=== PATIENT | female | born 2000 | race Caucasian/White ===

== ENCOUNTER 2018-08-19 11:56 | Emergency (ER) | payer BC ==
[2018-08-19] MEDS ORDERED: MEPERIDINE HCL 25 MG/0.5 ML ONE (12:26)
[2018-08-19] MEDS ORDERED: TAMSULOSIN 0.4 MG SR CAP ONE (12:27)
[2018-08-19] MEDS ORDERED: ONDANSETRON 4 MG/2 ML VIAL ONE (12:27)
[2018-08-19 12:58] LABS: Absolute Monocytes 0.7 K/uL (0.1-1.3); Absolute Neutrophil 5.3 K/uL (1.8-8.0); Basophils % 0.7 % (0-1.3); Eosinophils % 1.7 % (0-4.4); Hematocrit 39.9 % (36.0-45.0); Lymphocytes % 32.7 % (15.3-44.8); MPV 8.8 fL (7.6-11.3); Monocytes % 7.9 % (3.3-12.3); RBC Red Blood Cell Count 4.81 M/uL (3.86-4.86)
--- NOTE | 2018-08-19 13:01 | RAD REPORT ---
EXAM DESCRIPTION: CT - Stone Protocol - 08/19/2018 12:51 pm CLINICAL HISTORY: Right flank pain radiating to the right lower quadrant COMPARISON: None. TECHNIQUE: Axial 5 mm thick images were obtained without oral or IV contrast. The [id number] span s the entirety of the system partially obscuring uppermost abdomen and lung bases. All CT scans are performed using dose optimization technique as appropriate and may include automated exposure control or mA/KV adjustment according to patient size. FINDINGS: Mild right-sided hydronephrosis is present secondary to a 3 mm calcification in the distal right ureter. Stone is approximately 6-8 cm from the UVJ. No left-sided hydronephrosis. Patient has bilateral nonobstructing 2-5 mm calyx calculi. No suspiciou s renal masses. Isodense masses and pyelonephritis are not excluded on a stone protocol CT scan. Urin jemima bladder is contracted. No bladder calculi seen. No significant adrenal finding. Next 9 no uterus or right ovary abnormality. Left ovary contains a 3.2 centimeter probable cyst. No cyst rupture or he morrhage identified. Imaged portions of the liver, spleen and pancreas show no suspicious findings on non-contrast imaging . No gallbladder or biliary tree abnormality identified. No suspicious bowel findings. Appendix is normal. No hernia, mass or bulky lymphadenopathy noted. No free air, free fluid or inflammatory stranding. No acute bone finding. IMPRESSION: Mild right-sided hydronephrosis secondary to 3 mm distal right ureter calculus. Stone is approximately 6-8 cm from the UVJ. Bilateral nonobstructing calculi. Isodense masses and pyelonephritis are not excluded on stone protocol technique. Approximately 3 centimeter left ovarian cyst.
[2018-08-19 13:14] LABS: Urine Bacteria <20 /HPF (<20); Urine Culture Reflex Order NOT NEEDED; Urine RBC 20-50 /HPF (NONE SEEN)
[2018-08-19 13:16] LABS: ALT/SGPT 27 U/L (12-78); AST/SGOT 19 U/L (15-37); Albumin 3.5 g/dL (3.4-5.0); Alkaline Phosphatase 99 U/L (45-117); BUN Blood Urea Nitrogen 14 mg/dL (7-18); Bicarbonate 23 mmol/L (21-32); Bilirubin Direct < 0.1 mg/dL (0-0.2); Bilirubin Total 0.3 mg/dL (0.2-1.0); Glucose Level 98 mg/dL (74-106); Lipase 85 U/L (73-393); Potassium 3.6 mmol/L (3.5-5.1); Protein, Total 7.5 g/dL (6.4-8.2); Sodium Level 139 mmol/L (136-145)
[2018-08-19] MEDS ORDERED: PROMETHAZINE 25 MG/ML VIAL ONE (13:24)
[2018-08-19] MEDS ORDERED: MORPHINE 4 MG/ML SYR ONE (13:30)
--- OUTSIDE RECORDS SUMMARY | 2018-08-19 13:34 | XMS REPORT ---
:2000 [facility] Address [address] [place] [address] Dr. Ireland. [address] [place] [id number] Care Team Providers Name Role Phone Unavailable Unavailable Unavailable Problems This patient has no known problems. Allergies, Adverse Reactions, Alerts This patient has no known allergies or adverse reactions. Medications This patient has no known medications.
[2018-08-19 13:57] LABS: Urine Blood 2+ (NEG); Urine Glucose NEGATIVE (NEG); Urine Protein 1+ (NEG); Urine Specific Gravity >1.030 (1.005-1.030); Urine pH 5.5 (5.0-7.0)
--- NOTE | 2018-08-19 15:25 | ER ---
Nurse's Notes [facility] Name: Rachel Toledo Age: 17 yrs Sex: Female : 2000 Arrival Date: 08/19/2018 Time: 11:57 Bed 23 Private MD: Benedict Hernandez B Diagnosis: Ureterolithiasis Presentation: 08/19 11:59 Presenting complaint: Patient states: R flank pain with nausea that began this morning. ss Radiates to RLQ. Transition of care: patient was not received from another setting of care. Onset of symptoms was August 19, 2018. Risk Assessment: Do you want to hurt yourself or someone else? Patient reports no desire to harm self or others. Initial Sepsis Screen: Does the patient meet any 2 criteria? No. Patient's initial sepsis screen is negative. Does the patient have a suspected source of infection? No. Patient's initial sepsis screen is negative. Care prior to arrival: None. 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 - Social history:: Smoking status: Patient/guardian denies using tobacco. - Ebola Screening: : Patient denies exposure to infectious person Patient denies travel to an Ebola-affected area in the 21 days before illness onset. - Family history:: not pertinent. - Hospitalizations: : No recent hospitalization is reported. Screenin:18 Abuse screen: Denies threats or abuse. Denies injuries from another. Nutritional aj1 screening: No deficits noted. Tuberculosis screening: No symptoms or risk factors identified. 15:41 Fall Risk None identified. aj1 Assessment: 12:18 General: Appears comfortable, Behavior is cooperative, anxious, restless. Pain: aj1 Complains of pain in right low back Pain radiates to anterior aspect of right lateral abdomen Pain currently is 10 out of 10 on a pain scale. Neuro: Level of Consciousness is awake, alert, obeys commands, Oriented to person, place, time, situation. Cardiovascular: Patient's skin is warm and dry. Respiratory: Airway is patent Respiratory effort is even, unlabored, Respiratory pattern is regular, symmetrical. GI: Abdomen is non-distended, Bowel sounds present X 4 quads. Abd is soft and non tender X 4 quads. Reports nausea. : Reports flank pain. EENT: No signs and/or symptoms were reported regarding the EENT system. Derm: No signs and/or symptoms reported regarding the dermatologic system. Skin is pink, warm \T\ dry. normal. Musculoskeletal: No signs and/or symptoms reported regarding the musculoskeletal system. Circulation, motion, and sensation intact. 13:35 Reassessment: Patient appears in no apparent distress at this time. No changes from aj1 previously documented assessment. Patient and/or family updated on plan of care and expected duration. Pain level reassessed. Patient is alert, oriented x 3, equal unlabored respirations, skin warm/dry/pink. 14:38 Reassessment: Patient appears in no apparent distress at this time. No changes from aj1 previously documented assessment. Patient and/or family updated on plan of care and expected duration. Pain level reassessed. Patient is alert, oriented x 3, equal unlabored respirations, skin warm/dry/pink. 15:41 Reassessment: Patient appears in no apparent distress at this time. No changes from aj1 previously documented assessment. Patient and/or family updated on plan of care and expected duration. Pain level reassessed. Patient is alert, oriented x 3, equal unlabored respirations, skin warm/dry/pink. Vital Signs: 12:00 Resp 18; Weight 117.93 kg; Height 5 ft. 3 in. (160.02 cm); Pain 10/10; ss 12:30 BP 120 / 63; Pulse 64; Resp 18; Pulse Ox 100% on R/A; aj1 13:38 BP 117 / 73; Pulse 79; Resp 18; Pulse Ox 99% on R/A; aj1 14:38 BP 128 / 76; Pulse 78; Resp 18; Pulse Ox 98% on R/A; aj1 15:42 BP 125 / 66; Pulse 72; Resp 18; Pulse Ox 99% on R/A; aj1 12:00 Body Mass Index 46.06 (117.93 kg, 160.02 cm) ED Course: 11:57 Patient arrived in ED. dl4 11:58 Benedict Hernandez MD is Private Physician. dl4 12:00 Triage completed. ss 12:00 Arm band placed on right wrist. ss 12:03 Chinmay San MD is Attending Physician. rn 12:13 Leonor Rossi RN is Primary Nurse. aj1 12:16 Radiology exam delayed due to test not completed at this time. jg6 12:18 Patient has correct armband on for positive identification. Bed in low position. Call aj1 light in reach. Side rails up X 1. 12:18 No provider procedures requiring assistance completed. aj1 12:47 Missed attempt(s): 22 gauge in left in right forearm. antecubital area. Bleeding ds4 controlled, band aid applied, catheter tip intact. 12:50 Inserted saline lock: 24 gauge in right hand, using aseptic technique. Blood collected. aj1 12:51 CT Stone Protocol In Process Unspecified. EDMS 15:23 Kitty Zimmerman MD is Referral Physician. rn 15:41 IV discontinued, intact, bleeding controlled, No redness/swelling at site. Pressure aj1 dressing applied. Administered Medications: 12:49 Drug: Demerol 25 mg Route: IVP; Site: right hand; aj1 13:20 Follow up: Response: No adverse reaction; Pain is unchanged, physician notified aj1 12:49 Drug: Zofran 4 mg Route: IVP; Site: right hand; aj1 13:20 Follow up: Response: No adverse reaction aj1 12:49 Drug: Flomax 0.4 mg Route: PO; aj1 13:20 Follow up: Response: No adverse reaction aj1 13:24 Drug: Phenergan 12.5 mg Route: IVP; Site: right hand; aj1 14:20 Follow up: Response: No adverse reaction aj1 13:25 Drug: morphine 4 mg Route: IVP; Site: right hand; aj1 14:20 Follow up: Response: No adverse reaction; Pain is decreased aj1 Outcome: 15:24 Discharge ordered by MD. rn 15:43 Discharged to home ambulatory, with family. aj1 15:43 Condition: good 15:43 Discharge instructions given to patient, family, Instructed on discharge instructions, follow up and referral plans. no drinking with medication, no driving heavy equipment, medication usage, Demonstrated understanding of instructions, follow-up care, medications, Prescriptions given X 4. 15:43 Patient left the ED. aj1 Signatures: Dispatcher [employer] Leonor Shin RN RN aj1 Chinmay San MD MD rn Smirch, Shelby, RN RN ss Swanson, Donovan ds4 Maria Eugenia Booth6 Aleksandr Puckett dl4
--- NOTE | 2018-08-19 15:25 | EDPHYS ---
Physician Documentation [facility] Name: Rachel Toledo Age: 17 yrs Sex: Female : 2000 Arrival Date: 08/19/2018 Time: 11:57 Bed 23 Private MD: Benedict Hernandez B ED Physician Chinmay San HPI: 08/19 12:42 This 17 yrs old Female presents to ER via Ambulatory with complaints of flank rn pain, Vomiting. 12:42 The patient complains of pain in the low back area. The pain radiates to the abdomen. rn Onset: The symptoms/episode began/occurred today. Modifying factors: The symptoms are alleviated by nothing. the symptoms are aggravated by nothing. Severity of pain: At its worst the pain was moderate in the emergency department the pain is unchanged. The patient has not experienced similar symptoms in the past. The patient has not recently seen a physician. 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 - Social history:: Smoking status: Patient/guardian denies using tobacco. - Ebola Screening: : Patient denies exposure to infectious person Patient denies travel to an Ebola-affected area in the 21 days before illness onset. - Family history:: not pertinent. - Hospitalizations: : No recent hospitalization is reported. ROS: 12:42 Constitutional: Negative for fever, chills, and weight loss, Eyes: Negative for injury, rn pain, redness, and discharge, Neck: Negative for injury, pain, and swelling, Cardiovascular: Negative for chest pain, palpitations, and edema, Respiratory: Negative for shortness of breath, cough, wheezing, and pleuritic chest pain, Abdomen/GI: + nausea/vomiting Back: + right flank pain MS/Extremity: Negative for injury and deformity, Skin: Negative for injury, rash, and discoloration, Neuro: Negative for headache, weakness, numbness, tingling, and seizure. Exam: 12:42 Constitutional: This is a well developed, well nourished patient who is awake, alert, rn appears uncomfortable Head/Face: Normocephalic, atraumatic. Eyes: Pupils equal round and reactive to light, extra-ocular motions intact. Lids and lashes normal. Conjunctiva and sclera are non-icteric and not injected. Cornea within normal limits. Periorbital areas with no swelling, redness, or edema. ENT: MMM Abdomen/GI: soft, non-tender, no rebound Back: No spinal tenderness. No costovertebral tenderness. Full range of motion. MS/ Extremity: Pulses equal, no cyanosis. Neurovascular intact. Full, normal range of motion. Equal circumference. Neuro: Awake and alert, GCS 15, oriented to person, place, time, and situation. Cranial nerves II-XII grossly intact. Motor strength 5/5 in all extremities. Sensory grossly intact. Cerebellar exam normal. Normal gait. Vital Signs: 12:00 Resp 18; Weight 117.93 kg; Height 5 ft. 3 in. (160.02 cm); Pain 10/10; ss 12:30 BP 120 / 63; Pulse 64; Resp 18; Pulse Ox 100% on R/A; aj1 13:38 BP 117 / 73; Pulse 79; Resp 18; Pulse Ox 99% on R/A; aj1 14:38 BP 128 / 76; Pulse 78; Resp 18; Pulse Ox 98% on R/A; aj1 15:42 BP 125 / 66; Pulse 72; Resp 18; Pulse Ox 99% on R/A; aj1 12:00 Body Mass Index 46.06 (117.93 kg, 160.02 cm) ss MDM: 12:03 Patient medically screened. rn 15:21 Differential diagnosis: nephrolithiasis, UTI. 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 Counseling: I had a detailed discussion with the patient and/or guardian regarding: the historical points, exam findings, and any diagnostic results supporting the discharge/admit diagnosis, lab results, radiology results, the need for outpatient follow up, to return to the emergency department if symptoms worsen or persist or if there are any questions or concerns that arise at home. Response to treatment: the patient's symptoms have markedly improved after treatment, the patient's condition has returned to base line, and as a result, I will discharge patient. Special discussion: I discussed with the patient/guardian in detail that at this point there is no indication for admission to the hospital. It is understood, however, that if the symptoms persist or worsen the patient needs to return immediately for re-evaluation. Based on the history and exam findings, there is no indication for further emergent testing or inpatient evaluation. I discussed with the patient/guardian the need to see the primary care provider for further evaluation of the symptoms. I discussed with the patient/guardian the need to see the urologist for further evaluation of the symptoms. ED course: Sleeping comfortably, has likely passed stones in past given stories of intermittent groin pain and spasms. . 08/19 12:09 Order name: Basic Metabolic Panel; Complete Time: 15:05 rn 08/19 12:09 Order name: CBC with Diff; Complete Time: 13:07 rn 08/19 12:09 Order name: Hepatic Function; Complete Time: 15:05 rn 08/19 12:09 Order name: Lipase; Complete Time: 15:05 rn 08/19 12:09 Order name: Urine Microscopic Only; Complete Time: 15:05 rn 08/19 12:17 Order name: Urine Dipstick--Ancillary (enter results); Complete Time: 15:05 bd 08/19 12:09 Order name: IV Saline Lock; Complete Time: 12:49 rn 08/19 12:12 Order name: CT Stone Protocol; Complete Time: 13:07 rn 08/19 12:17 Order name: Urine --Ancillary (enter results); Complete Time: 15:05 bd 08/19 12:09 Order name: Labs collected and sent; Complete Time: 12:49 rn 08/19 12:09 Order name: Urine Test (obtain specimen); Complete Time: 12:17 rn 08/19 12:09 Order name: Urine Dipstick-Ancillary (obtain specimen); Complete Time: 12:17 rn Administered Medications: 12:49 Drug: Demerol 25 mg Route: IVP; Site: right hand; aj1 13:20 Follow up: Response: No adverse reaction; Pain is unchanged, physician notified aj1 12:49 Drug: Zofran 4 mg Route: IVP; Site: right hand; aj1 13:20 Follow up: Response: No adverse reaction aj1 12:49 Drug: Flomax 0.4 mg Route: PO; aj1 13:20 Follow up: Response: No adverse reaction aj1 13:24 Drug: Phenergan 12.5 mg Route: IVP; Site: right hand; aj1 14:20 Follow up: Response: No adverse reaction aj1 13:25 Drug: morphine 4 mg Route: IVP; Site: right hand; aj1 14:20 Follow up: Response: No adverse reaction; Pain is decreased aj Disposition: 08/19/18 15:24 Discharged to Home. Impression: Ureterolithiasis. - Condition is Stable. - Discharge Instructions: Kidney Stones, Dietary Guidelines to Help Prevent Kidney Stones. - Prescriptions for Zofran ODT 4 mg Oral tablet,disintegrating - place 1 tablet by TRANSLINGUAL route every 8 hours As needed; 20 tablet. Ibuprofen 800 mg Oral Tablet - take 1 tablet by ORAL route every 12 hours As needed take with food; 20 tablet. Tylenol- Codeine #3 300-30 mg Oral Tablet - take 1 tablet by ORAL route every 6 hours As needed; 20 tablet. Flomax 0.4 mg Oral Capsule, Sust. Release 24 hr - take 1 capsule by ORAL route once daily 1/2 hour following the same meal each day; 3 capsule. - Medication Reconciliation Form, Thank You Letter, Antibiotic Education, Prescription Opioid Use form. - Follow up: Kitty Zimmerman MD; When: As needed; Reason: Recheck today's complaints, Re-evaluation by your physician. - Problem is new. - Symptoms have improved. Signatures: Dispatcher [employer] Leonor Shin RN RN aj1 Chinmay San MD MD rn Smirch, Shelby, RN RN Corrections: (The following items were deleted from the chart) 15:43 15:24 08/19/2018 15:24 Discharged to Home. Impression: Ureterolithiasis. Condition is aj1 Stable. Forms are Medication Reconciliation Form, Thank You Letter, Antibiotic Education, Prescription Opioid Use. Follow up: Kitty Zimmerman; When: As needed; Reason: Recheck today's complaints, Re-evaluation by your physician. Problem is new. Symptoms have improved. rn
[2018-08-19 16:00] VITALS: BP 125/66; O2SAT 99
== END 2018-08-19 15:43 | disposition home or self-care (01) ==
LOC: ER 11:56
DX: N20.1 Calculus of ureter (principal)
CPT/HCPCS: 36415; 74176; 76377; 80048; 80076; 81003; 81015; 81025; 83690; 85025; 96374; 96375; 99284; J2175; J2405; J2550

== ENCOUNTER 2018-08-21 02:05 | Inpatient (IN) | payer BC ==
--- OUTSIDE RECORDS SUMMARY | 2018-08-21 02:06 | XMS REPORT ---
:2000 [facility] Address [address] [place] [address] Dr. Ireland. [address] [place] [id number] Care Team Providers Name Role Phone Unavailable Unavailable Unavailable Problems This patient has no known problems. Allergies, Adverse Reactions, Alerts This patient has no known allergies or adverse reactions. Medications This patient has no known medications.
[2018-08-21] MEDS ORDERED: NA CHLORIDE 0.9% 2,000 ML ONE (03:05)
[2018-08-21] MEDS ORDERED: KETOROLAC 30 MG/ML INJ ONE (03:05)
[2018-08-21] MEDS ORDERED: MORPHINE 4 MG/ML SYR ONE ×2 (03:05→05:45)
[2018-08-21] MEDS ORDERED: ONDANSETRON 4 MG/2 ML VIAL ONE ×4 (03:07→15:56)
[2018-08-21 03:58] LABS: ALT/SGPT 27 U/L (12-78); AST/SGOT 17 U/L (15-37); Albumin 3.4 g/dL (3.4-5.0); Alkaline Phosphatase 102 U/L (45-117); BUN Blood Urea Nitrogen 22 mg/dL (7-18); Bicarbonate 23 mmol/L (21-32); Bilirubin Direct < 0.1 mg/dL (0-0.2); Bilirubin Total 0.4 mg/dL (0.2-1.0); Glucose Level 90 mg/dL (74-106); Lipase 93 U/L (73-393); Potassium 4.2 mmol/L (3.5-5.1); Protein, Total 7.6 g/dL (6.4-8.2); Sodium Level 137 mmol/L (136-145)
--- NOTE | 2018-08-21 04:19 | EDPHYS ---
Physician Documentation [facility] Name: Rachel Toledo Age: 17 yrs Sex: Female : 2000 Arrival Date: 08/21/2018 Time: 02:06 Bed 6 Private MD: Benedict Hernandez B ED Physician Dima Scott HPI: 08/21 02:43 This 17 yrs old Female presents to ER via Ambulatory with complaints of Flank atul Pain, Vomiting. 02:43 The patient complains of pain in the right mid back and right low back. The pain atul radiates to the right mid back and right low back. Onset: The symptoms/episode began/occurred yesterday. Modifying factors: The symptoms are alleviated by nothing. the symptoms are aggravated by nothing. Associated signs and symptoms: The patient has no apparent associated signs or symptoms. Severity of pain: At its worst the pain was moderate in the emergency department the pain is unchanged. The patient has experienced a previous episode, last night. 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 - Social history:: Smoking status: Patient/guardian denies using tobacco. - Ebola Screening: : No symptoms or risks identified at this time. - Family history:: not pertinent. ROS: 02:43 Constitutional: Negative for fever, chills, and weight loss, Eyes: Negative for injury, atul pain, redness, and discharge, ENT: Negative for injury, pain, and discharge, Neck: Negative for injury, pain, and swelling, Cardiovascular: Negative for chest pain, palpitations, and edema, Respiratory: Negative for shortness of breath, cough, wheezing, and pleuritic chest pain, Abdomen/GI: Negative for abdominal pain, nausea, vomiting, diarrhea, and constipation, : Negative for injury, bleeding, discharge, and swelling, MS/Extremity: Negative for injury and deformity, Skin: Negative for injury, rash, and discoloration, Neuro: Negative for headache, weakness, numbness, tingling, and seizure, Psych: Negative for depression, anxiety, suicide ideation, homicidal ideation, and hallucinations, Allergy/Immunology: Negative for hives, rash, and allergies, Endocrine: Negative for neck swelling, polydipsia, polyuria, polyphagia, and marked weight changes, Hematologic/Lymphatic: Negative for swollen nodes, abnormal bleeding, and unusual bruising. 02:43 Back: Positive for flank pain, on the right. Exam: 02:43 Constitutional: This is a well developed, well nourished patient who is awake, alert, atul and in no acute distress. Head/Face: Normocephalic, atraumatic. Eyes: Pupils equal round and reactive to light, extra-ocular motions intact. Lids and lashes normal. Conjunctiva and sclera are non-icteric and not injected. Cornea within normal limits. Periorbital areas with no swelling, redness, or edema. ENT: Nares patent. No nasal discharge, no septal abnormalities noted. Tympanic membranes are normal and external auditory canals are clear. Oropharynx with no redness, swelling, or masses, exudates, or evidence of obstruction, uvula midline. Mucous membranes moist. Neck: Trachea midline, no thyromegaly or masses palpated, and no cervical lymphadenopathy. Supple, full range of motion without nuchal rigidity, or vertebral point tenderness. No Meningismus. Chest/axilla: Normal chest wall appearance and motion. Nontender with no deformity. No lesions are appreciated. Cardiovascular: Regular rate and rhythm with a normal S1 and S2. No gallops, murmurs, or rubs. Normal PMI, no JVD. No pulse deficits. Respiratory: Lungs have equal breath sounds bilaterally, clear to auscultation and percussion. No rales, rhonchi or wheezes noted. No increased work of breathing, no retractions or nasal flaring. Abdomen/GI: Soft, non-tender, with normal bowel sounds. No distension or tympany. No guarding or rebound. No evidence of tenderness throughout. Skin: Warm, dry with normal turgor. Normal color with no rashes, no lesions, and no evidence of cellulitis. MS/ Extremity: Pulses equal, no cyanosis. Neurovascular intact. Full, normal range of motion. Neuro: Awake and alert, GCS 15, oriented to person, place, time, and situation. Cranial nerves II-XII grossly intact. Motor strength 5/5 in all extremities. Sensory grossly intact. Cerebellar exam normal. Normal gait. 02:43 Back: pain, that is mild, that is moderate, ROM is normal, normal spinal alignment noted, CVA tenderness, that is mild. Vital Signs: 02:32 BP 118 / 94; Pulse 106; Resp 18; Temp 98.3(O); Pulse Ox 98% on R/A; Weight 117.93 kg; tl2 Height 5 ft. 3 in. (160.02 cm); Pain 8/10; 03:54 BP 125 / 51; Pulse 89; Resp 18; Pulse Ox 96% on R/A; tl2 05:00 BP 136 / 64; Pulse 87; Resp 18; Pulse Ox 98% on R/A; tl2 02:32 Body Mass Index 46.06 (117.93 kg, 160.02 cm) tl2 MDM: 02:30 Patient medically screened. [facility] 02:49 Data reviewed: vital signs, nurses notes, lab test result(s), radiologic studies, plain atul films. 08/21 02:40 Order name: Basic Metabolic Panel; Complete Time: 04:03 08/21 02:40 Order name: CBC with Diff 08/21 02:40 Order name: Creatinine for Radiology; Complete Time: 04:03 08/21 02:40 Order name: Hepatic Function; Complete Time: 04:03 08/21 02:40 Order name: Lipase; Complete Time: 04:03 08/21 10:51 Order name: CBC with Automated Diff EDNY 08/21 02:40 Order name: XRAY Abdomen 1 View (KUB) 08/21 10:54 Order name: Basic Metabolic Panel EDMS 08/21 12:29 Order name: Urine Dipstick--Ancillary (enter results) 08/21 12:29 Order name: Urine --Ancillary (enter results) 08/21 02:40 Order name: IV Saline Lock; Complete Time: 03:11 08/21 02:40 Order name: Labs collected and sent; Complete Time: 03:11 08/21 02:40 Order name: Urine Dipstick-Ancillary (obtain specimen); Complete Time: 05:02 bb 08/21 02:40 Order name: Urine Test (obtain specimen); Complete Time: 05:02 08/21 06:22 Order name: CONS Physician Consult EDMS 08/21 06:22 Order name: NPO EDMS Administered Medications: 03:09 Drug: NS 0.9% 2000 ml Route: IV; Rate: 1 bolus; Site: left hand; tl2 05:00 Follow up: IV Status: Completed infusion; IV Intake: 2000ml tl2 03:10 Drug: TORadol 30 mg Route: IVP; Site: left hand; tl2 04:00 Follow up: Response: No adverse reaction; Pain is decreased tl2 03:10 Drug: morphine 4 mg Route: IVP; Site: left hand; tl2 04:00 Follow up: Response: No adverse reaction; Pain is decreased tl2 03:10 Drug: Zofran 4 mg Route: IVP; Site: left hand; tl2 04:00 Follow up: Response: No adverse reaction; Nausea is decreased tl2 05:00 Drug: Rocephin - (cefTRIAXone) 1 grams Route: IVPB; Infused Over: 30 mins; Site: left tl2 hand; 05:30 Follow up: IV Status: Completed infusion tl2 05:40 Drug: morphine 4 mg Route: IVP; Site: left hand; tl2 06:30 Follow up: Response: No adverse reaction; Pain is decreased tl2 05:43 Drug: Zofran 4 mg Route: IVP; Site: left hand; tl2 06:30 Follow up: Response: No adverse reaction; Nausea is decreased tl2 06:04 Drug: NS 0.9% 1000 ml Route: IV; Rate: 1 bolus; Site: left hand; tl2 07:10 Follow up: IV Status: Infusion continued upon admission tl2 07:11 Not Given (Will chart on [facility]): NS 0.9% 1000 ml IV at 125 ml/hr continuous tl2 Disposition: 08/21/18 04:19 Hospitalization ordered by Alem Lockwood for Observation. Preliminary diagnosis are Unspecified kidney failure - renal insufficency, Hydronephrosis with renal and ureteral calculous obstruction. - Bed requested for [facility] ER HOLD. - Status is Observation. ss - Condition is Stable. - Problem is new. - Symptoms have improved. UTI on Admission? No Signatures: Dispatcher [employer] EDMS Dima Scott MD MD cha Ballard, Brenda, RN RN bb Trish Mariee RN RN ss Griselda Coburn RN RN tl2 Farida Barrios ar5 Corrections: (The following items were deleted from the chart) 05:21 04:19 Hospitalization Ordered by Alem Lockwood MD for Observation. Preliminary ar5 diagnosis is Unspecified kidney failure - renal insufficency; Hydronephrosis with renal and ureteral calculous obstruction. Bed requested for Telemetry/MedSurg (observation). Status is Observation. Condition is Stable. Problem is new. Symptoms have improved. UTI on Admission? No. atul 12:59 05:21 08/21/2018 04:19 Hospitalization Ordered by Alem Lockwood MD for Observation. Preliminary diagnosis is Unspecified kidney failure - renal insufficency; Hydronephrosis with renal and ureteral calculous obstruction. Bed requested for [facility] ER HOLD. Status is Observation. Condition is Stable. Problem is new. Symptoms have improved. UTI on Admission? No. ar5
--- NOTE | 2018-08-21 04:19 | ER ---
Nurse's Notes [facility] Name: Rachel Toledo Age: 17 yrs Sex: Female : 2000 Arrival Date: 08/21/2018 Time: 02:06 Bed 6 Private MD: Benedict Hernandez B Diagnosis: Unspecified kidney failure-renal insufficency;Hydronephrosis with renal and ureteral calculous obstruction Presentation: 08/21 02:28 Presenting complaint: Patient states: Seen here last night and diagnosed with kidney tl2 stones, reported she had 6 stones and one was 3 mm. Pt prescribed Tylenol #3 and zofran. Took last Tylenol #3 at 10 pm and zofran at 6 pm. Reporting severe pain and no relief. Transition of care: patient was not received from another setting of care. Onset of symptoms was August 20, 2018 at 18:00. Risk Assessment: Do you want to hurt yourself or someone else? Patient reports no desire to harm self or others. Initial Sepsis Screen: Does the patient meet any 2 criteria? No. Patient's initial sepsis screen is negative. Does the patient have a suspected source of infection? No. Patient's initial sepsis screen is negative. Care prior to arrival: None. 02:28 Method Of Arrival: Ambulatory tl2 02:28 Acuity: ANTONY 3 tl2 Triage Assessment: 02:32 General: Appears in no apparent distress. uncomfortable, Behavior is calm, cooperative, tl2 appropriate for age. Pain: Complains of pain in right flank Pain currently is 8 out of 10 on a pain scale. Quality of pain is described as stabbing. Neuro: Level of Consciousness is awake, alert, obeys commands, Oriented to person, place, time, situation. Respiratory: Airway is patent Respiratory effort is even, unlabored, Respiratory pattern is regular, symmetrical. GI: Reports nausea, vomiting. : Reports pain in right flank(s). Derm: Skin is pink, warm \T\ dry. 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 - Social history:: Smoking status: Patient/guardian denies using tobacco. - Ebola Screening: : No symptoms or risks identified at this time. - Family history:: not pertinent. Screenin:36 Abuse screen: Denies threats or abuse. Nutritional screening: No deficits noted. tl2 Tuberculosis screening: No symptoms or risk factors identified. Fall Risk None identified. Assessment: 02:32 General: see triage assessment. tl2 Vital Signs: 02:32 BP 118 / 94; Pulse 106; Resp 18; Temp 98.3(O); Pulse Ox 98% on R/A; Weight 117.93 kg; tl2 Height 5 ft. 3 in. (160.02 cm); Pain 8/10; 03:54 BP 125 / 51; Pulse 89; Resp 18; Pulse Ox 96% on R/A; tl2 05:00 BP 136 / 64; Pulse 87; Resp 18; Pulse Ox 98% on R/A; tl2 02:32 Body Mass Index 46.06 (117.93 kg, 160.02 cm) tl2 ED Course: 02:06 Patient arrived in ED. am2 02:07 Benedict Hernandez MD is Private Physician. am2 02:28 Griselda Coburn RN is Primary Nurse. tl2 02:29 Dima Scott MD is Attending Physician. atul 02:30 Triage completed. tl2 02:32 Arm band placed on right wrist. tl2 02:36 Patient has correct armband on for positive identification. Bed in low position. Call tl2 light in reach. Side rails up X 1. Adult w/ patient. 02:45 Inserted saline lock: 22 gauge in left hand, using aseptic technique. Blood collected. tl2 03:15 XRAY Abdomen 1 View (KUB) In Process Unspecified. EDMS 04:16 Alem Lockwood MD is Hospitalizing Provider. atul 06:54 No provider procedures requiring assistance completed. Patient admitted, IV remains in tl2 place. Administered Medications: 03:09 Drug: NS 0.9% 2000 ml Route: IV; Rate: 1 bolus; Site: left hand; tl2 05:00 Follow up: IV Status: Completed infusion; IV Intake: 2000ml tl2 03:10 Drug: TORadol 30 mg Route: IVP; Site: left hand; tl2 04:00 Follow up: Response: No adverse reaction; Pain is decreased tl2 03:10 Drug: morphine 4 mg Route: IVP; Site: left hand; tl2 04:00 Follow up: Response: No adverse reaction; Pain is decreased tl2 03:10 Drug: Zofran 4 mg Route: IVP; Site: left hand; tl2 04:00 Follow up: Response: No adverse reaction; Nausea is decreased tl2 05:00 Drug: Rocephin - (cefTRIAXone) 1 grams Route: IVPB; Infused Over: 30 mins; Site: left tl2 hand; 05:30 Follow up: IV Status: Completed infusion tl2 05:40 Drug: morphine 4 mg Route: IVP; Site: left hand; tl2 06:30 Follow up: Response: No adverse reaction; Pain is decreased tl2 05:43 Drug: Zofran 4 mg Route: IVP; Site: left hand; tl2 06:30 Follow up: Response: No adverse reaction; Nausea is decreased tl2 06:04 Drug: NS 0.9% 1000 ml Route: IV; Rate: 1 bolus; Site: left hand; tl2 07:10 Follow up: IV Status: Infusion continued upon admission tl2 07:11 Not Given (Will chart on [facility]): NS 0.9% 1000 ml IV at 125 ml/hr continuous tl2 Intake: 05:00 IV: 2000ml; Total: 2000ml. tl2 Outcome: 04:19 Decision to Hospitalize by Provider. atul 06:54 Admitted to ER Hold. Please see [facility] for further documentation. tl2 06:54 Condition: stable 06:54 Discharge instructions given to patient, family, Instructed on the need for admit. 12:59 Patient left the ED. Signatures: Dispatcher [employer] Dima Rene MD MD cha Smirch, Shelby RN RN Griselda Coburn RN RN tl2 Ping Mike
[2018-08-21] MEDS ORDERED: CEFTRIAXONE 1000 MG/VIAL ONE (05:28)
[2018-08-21] MEDS ORDERED: NA CHLORIDE 0.9% 1,000 ML ONE (05:46)
[2018-08-21 06:12] LABS: Absolute Monocytes 0.8 K/uL (0.1-1.3); Absolute Neutrophil 6.2 K/uL (1.8-8.0); Basophils % 0.5 % (0-1.3); Eosinophils % 0.8 % (0-4.4); Lymphocytes % 21.5 % (15.3-44.8); MPV 8.9 fL (7.6-11.3); Monocytes % 9.3 % (3.3-12.3); RBC Red Blood Cell Count 4.07 M/uL (3.86-4.86)
[2018-08-21] MEDS ORDERED: ACETAMINOPHEN 500 MG TAB PO PRN (06:16)
[2018-08-21] MEDS ORDERED: ONDANSETRON 4 MG/2 ML VIAL IV PRN (06:16)
[2018-08-21 06:55] VITALS: BMI 44.2
[2018-08-21] MEDS ORDERED: Levofloxacin500mg IV 500 MG/100 ML BAG IV SCH (07:00)
[2018-08-21] MEDS ORDERED: NA CHLORIDE 0.9% 1,000 ML IV SCH (07:00)
[2018-08-21] MEDS ORDERED: Levofloxacin500mg IV 500 MG/100 ML BAG IV ONE (08:07)
--- NOTE | 2018-08-21 08:12 | RAD REPORT ---
EXAM DESCRIPTION: RAD - Abdomen 1 View (KUB) - 08/21/2018 3:17 am CLINICAL HISTORY: Abdomen pain. FINDINGS: The bowel gas pattern is unremarkable. Moderate amount of stool is present throughout the colon which obscures detection of renal calculi A 2 millimeter calcification is present within the medial right pelvis which may represent a ureteral calculus or phlebolith.
--- NOTE | 2018-08-21 08:27 | P.HP ---
Certification for Inpatient Patient admitted to: Inpatient With expected LOS: >2 Midnights Patient will require the following post-hospital care: None Practitioner: I am a practitioner with admitting privileges, knowledge of patient current condition, hospital course, and medical plan of care. Services: Services provided to patient in accordance with Admission requirements found in Title 42 Section 412.3 of the Code of Federal Regulations Patient History Date of Service: 08/21/18 Reason for admission: obstructive uropathy History of Present Illness: Patient is a 17-year-old female who came into the hospital yesterday with flank and abdominal pain. Her workup revealed that she had multiple nephrolithiasis. The largest 1 was noted to be 3 mm. Patient was discharged to follow-up as an outpatient. However, the pain became excruciating and she has been having persistent nausea and vomiting. She came back into the hospital. Her GFR which was greater than 60 was down to 34. she was in acute renal failure and there was concern for obstructive uropathy. Patient will be admitted to the hospital with consultation with urology. Will keep patient NPO and hydrate her aggressively. We will strain all urine and sent specimen to pathology. Allergies No Known Allergies Allergy (Unverified 08/21/18 05:31) Home Medications: Norgestimate-Ethinyl Estradiol [Estarylla 0.25-0.035 mg Tablet] 0.25 mg PO DAILY 08/21/18 - Past Medical/Surgical History Has patient received pneumonia vaccine in the past: No Diabetic: No Past Medical History: Patient denies medical history Past Surgical History: Patient denies surgical history - Family History Father Family History: Reviewed- Non-Contributory - Social History Smoking Status: Never smoker Alcohol use: No CD- Drugs: No Caffeine use: Yes Place of Residence: Home Review of Systems 10-point ROS is otherwise unremarkable Physical Examination - Vital Signs Temperature: 98 F Blood Pressure: 120/70 Pulse: 80 Respirations: 18 Pulse Ox (%): 98 - Physical Exam General: Alert, In no apparent distress, Oriented x3 HEENT: Atraumatic, Normocephalic, PERRLA, Mucous membr. moist/pink Neck: Supple, 2+ carotid pulse no bruit, JVD not distended, No Thyromegaly, No LAD Respiratory: Clear to auscultation bilaterally, Normal air movement Cardiovascular: Regular rate/rhythm, Normal S1 S2, No murmurs Gastrointestinal: Soft and benign, Non-distended, No tenderness, No rebound, No guarding Musculoskeletal: No clubbing, No swelling Integumentary: No rashes Neurological: Normal gait, Normal speech, Normal strength at 5/5 x4 extr, Normal tone, Sensation intact, Cranial nerves 3-12 intact, Normal reflexes 2+ - Studies Laboratory Data (last 24 hrs) 08/21/18 05:58: WBC 9.1, Hgb 11.4 L, Hct 34.0 L, Plt Count 221 08/21/18 02:45: Creatinine 1.88 H 08/21/18 02:45: Sodium 137, Potassium 4.2, BUN 22 H, Creatinine 1.84 H, Glucose 90, Total Bilirubin 0.4, AST 17, ALT 27, Alkaline Phosphatase 102, Lipase 93 Assessment & Plan - Problems (Diagnosis) (1) Obstructive uropathy Current Visit: Yes Status: Acute (2) Acute kidney injury Current Visit: Yes Status: Acute (3) Nephrolithiasis Current Visit: Yes Status: Acute - Plan -management per urology -IV hydration and IV antibiotics -NPO -monitor electrolytes and blood count closely -pain control -strain urine Discharge Plan: Home Plan to discharge in: Greater than 2 days - Advance Directives Does patient have a Living Will: No Does patient have a Durable POA for Healthcare: No - Code Status/Comfort Care Code Status Assessed: Yes Code Status: Full Code Critical Care: No Time Spent Managing PTS Care (In Minutes): 40
[2018-08-21] MEDS ORDERED: ENOXAPARIN 30 MG/0.3 ML SQ SCH (09:00)
[2018-08-21 10:47] LABS: Absolute Lymphocytes (CBC) 2.6 K/uL (0.7-4.9); Absolute Monocytes 0.7 K/uL (0.1-1.3); Absolute Neutrophil 4.6 K/uL (1.8-8.0); Basophils % 0.8 % (0-1.3); Eosinophils % 1.7 % (0-4.4); Hematocrit 36.2 % (36.0-45.0); Lymphocytes % 31.5 % (15.3-44.8); MPV 8.8 fL (7.6-11.3); Monocytes % 8.9 % (3.3-12.3); RBC Red Blood Cell Count 4.29 M/uL (3.86-4.86)
[2018-08-21 10:54] LABS: Potassium 4.1 mmol/L (3.5-5.1)
[2018-08-21] MEDS ORDERED: ENOXAPARIN 30 MG/0.3 ML SQ ONE (11:57)
[2018-08-21] MEDS ORDERED: MIDAZOLAM HCL 2 MG/2 ML INJ ONE (13:04)
[2018-08-21] MEDS ORDERED: GENTAMICIN 100 MG/100 ML BAG 100 ML IV ONE (13:07)
[2018-08-21 13:19] LABS: Urine Blood NEGATIVE (NEG); Urine Glucose NEGATIVE (NEG); Urine Protein NEGATIVE (NEG); Urine pH 5.5 (5.0-7.0)
[2018-08-21] MEDS ORDERED: LIDOCAINE 2% MPF 5 ML VIAL ONE (13:22)
[2018-08-21] MEDS ORDERED: FENTANYL CITR 100 MCG/2 ML ONE ×2 (13:22→13:50)
[2018-08-21] MEDS ORDERED: PROPOFOL 200 MG/20 ML VIAL IV ONE (13:23)
[2018-08-21] MEDS ORDERED: Ringers Lactate 1,000 ML IV ONE (14:05)
--- NOTE | 2018-08-21 14:10 | RAD REPORT ---
EXAM DESCRIPTION: RAD - Urography Retrograde - 08/21/2018 2:03 pm CLINICAL HISTORY: ICD N 20.0 FINDINGS: Twenty fluoroscopic spot images obtained. Fluoroscopy time 1.46 minutes The right ureter was cannulated and contrast administered. Subsequently a right ureteral stent was pl aced. Examination was performed by
[2018-08-21] MEDS ORDERED: ONDANSETRON HCL 40 MG/20 ML VIAL ONE (14:46)
[2018-08-21 14:56] VITALS: TEMP 98
[2018-08-21] MEDS ORDERED: TRAMADOL HCL 50 MG TAB ONE (15:22)
[2018-08-21] MEDS ORDERED: PHENAZOPYRIDINE 100MG TAB PO ONE ×2 (15:50→15:52)
[2018-08-21 16:33] VITALS: BP 129/75; O2SAT 97
--- NOTE | 2018-08-21 17:38 | CON ---
History Of Present Illness: A 17-year-old female, who came to the hospital twice for renal colic. S he was diagnosed with a 3 mm stone in the distal right ureter, 4-6 cm from the UVJ. She was sent yolanda e the day before. Now she is back with worsening pain. Her renal function has gone down. I have di scussed with her the options of watchful waiting trying to pass the stone on own versus a stent versu s ureteroscopy and stent. She wishes to have something most definitive done today and get back to wo rk as soon as possible. Her CT scan also showed bilateral small 2-5 mm calyceal stone and a 3.2 cm p ossible left ovarian cyst. She will see a CURBSTONE SETTER for this. All general information, alternatives, and risks were given. She was not coerced. Proper informed consent was obtained. She was able to answe r all the questions. Mother was present and daughter was present. All the questions were answered a lso. Allergies: NO KNOWN DRUG ALLERGIES. Home Medications: control pills. Past Medical History: None. Past Surgical History: None. Family History: Noncontributory. Social History: Never smoked. Drugs, none. Caffeine use, yes. Resides at home. She is a headwaiter/headwaitress . Review of Systems: Ten-point review of systems otherwise unremarkable. Physical Examination: Vital Signs: Afebrile, stable. Temperature 98, blood pressure 120/70, pulse 80, respirations 18, an d pulse ox 98%. General: Alert, oriented, no acute distress. HEENT: Atraumatic and normocephalic. Neck: Supple. Respiratory: Clear. Cardiovascular: S1 and S2. Gastrointestinal: Soft and benign. Musculoskeletal: No clubbing. No swelling. Skin: No rashes. Neurologic: Grossly intact. Laboratory Studies: Reviews white count 9.1, H and H 11 and 34, platelets 221. Creatinine 1.8. Daxa aracelis shows sodium 137, potassium 4.2, BUN 22, creatinine 1.9, glucose 90. LFTs normal. Assessment: A 3 mm stone, 6-8 cm from the right ureterovesical junction causing pain, decrease in re nal function, chronic obstruction, acute obstruction. Plan: Plan is to do ureteroscopy, stone basket removal, double-J stent placement with all general in formation, alternatives, and risks. The patient not coerced. The patient was alert and oriented in reference to us. The patient was coherent and able to ask all the questions she had. She is satisfi ed and wishes to proceed. BILL/ARACELY Voice ID: [id number] Report ID: [id number]
== END 2018-08-21 16:30 | disposition home or self-care (01) | DRG 660 ==
LOC: ER 02:05 → ERHOLD 06:17
PROVIDERS: ADMIT Hospitalist; ATTEND Hospitalist
PROC: BT1DYZZ Fluoroscopy of Right Kidney, Ureter and Bladder using Other Contrast (ICD-10-PCS; 2018-08-21)
PROC: 0T768DZ Dilation of Right Ureter with Intraluminal Device, Via Natural or Artificial Opening Endoscopic (ICD-10-PCS; principal; 2018-08-21 13:30)
DX: N13.8 Other obstructive and reflux uropathy (principal); N17.9 Acute kidney failure, unspecified; N20.2 Calculus of kidney with calculus of ureter
CPT/HCPCS: 36415; 74018; 74420; 80048; 80076; 81003; 81025; 83690; 85025; 96361; 96365; 96375; 99285; J1580; J1650; J2250; J2405; J2704; J3010; J7030; Q9967

== ENCOUNTER 2020-07-09 14:59 | Emergency (ER) | payer BC, SELFPAY ==
--- OUTSIDE RECORDS SUMMARY | 2020-07-09 15:03 | XMS REPORT | Continuity of Care Document ---
:2000 Author Organization [facility] t Address [address] [place] [address] [address] [place] [address] Care Team Providers Name Role Phone Davis Attending Clinician Problems This patient has no known problems. Allergies, Adverse Reactions, Alerts This patient has no known allergies or adverse reactions. Medications This patient has no known medications. Procedures This patient has no known procedures. Encounters Start End Encounter Admission Attending Care Care Encounter Source Date/Time Date/Time Type Type Clinicians Facility Department ID 2020-03-09 2020-03-09 Telephone de [facility] [id number] 00:00:00 00:00:00 Noel Gilmore [id number] [facility] [id number] [facility] [id number] Results This patient has no known results.
[2020-07-09 16:31] LABS: SARS-COV-2 RT PCR POSITIVE (NEGATIVE)
--- NOTE | 2020-07-09 16:38 | ER ---
Nurse's Notes [facility] Name: Rachel Toledo Age: 19 yrs Sex: Female : 2000 Arrival Date: 07/09/2020 Time: 15:02 Bed 20 Private MD: Diagnosis: Coronavirus infection, unspecified Presentation: 07/09 15:07 Chief complaint: Patient states: Cough/congestion, GAMBINO, loss of taste since Sunday. + ll1 nausea. No fever, but feels sweaty and hot. Coronavirus screen: Client denies travel out of the [place] in the last 14 days. congestion, cough unrelated to allergies, difficulty breathing, headache, nausea, runny nose, sore throat, loss of taste or smell, Client presents with at least one sign or symptom that may indicate coronavirus-19. Standard/surgical mask placed on the client. Ebola Screen: Patient denies travel to an Ebola-affected area in the 21 days before illness onset. Initial Sepsis Screen: Does the patient meet any 2 criteria? HR > 90 bpm. No. Patient's initial sepsis screen is negative. Does the patient have a suspected source of infection? Yes: Productive cough/pneumonia. Risk Assessment: Do you want to hurt yourself or someone else? Patient reports no desire to harm self or others. Onset of symptoms. 15:07 Method Of Arrival: Ambulatory ll1 15:07 Acuity: ANTONY 4 ll1 Historical: - Allergies: 15:09 No Known Allergies; ll1 - PMHx: 15:09 Kidney stones; ll1 - PSHx: 15:09 hip sx; ll1 - Immunization history:: Flu vaccine is up to date. - Social history:: Smoking status: Patient denies any tobacco usage or history of. Screenin:55 Abuse screen: Denies threats or abuse. Denies injuries from another. Nutritional dm14 screening: No deficits noted. Tuberculosis screening: No symptoms or risk factors identified. Fall Risk None identified. Assessment: 17:02 General: Appears in no apparent distress. comfortable, obese, Behavior is calm, dm14 cooperative, appropriate for age. Pain: Denies pain. Neuro: No deficits noted. Vital Signs: 15:07 BP 150 / 98; Pulse 114; Resp 16; Temp 97.6; Pulse Ox 97% ; Weight 133.36 kg; Height 5 ll1 ft. 3 in. (160.02 cm); Pain 0/10; 16:55 BP 140 / 106; Pulse 118; Resp 22; Pulse Ox 98% ; dm14 15:07 Body Mass Index 52.08 (133.36 kg, 160.02 cm) ll1 ED Course: 15:02 Patient arrived in ED. ds1 15:04 Huyen Cohen FNP-C is [facility]. kb 15:04 James House MD is Attending Physician. kb 15:09 Triage completed. ll1 15:09 Arm band placed on. ll1 15:41 Lennie Coto, RN is Primary Nurse. dm14 Administered Medications: No medications were administered Outcome: 16:37 Discharge ordered by . kb 17:11 Patient left the ED. dm14 Signatures: Huyen Cohen FNP-C FNP-Zuleika Aguilera ds1 Kev Hernandez RN RN ll1 Lennie Coto RN RN dm14
--- NOTE | 2020-07-09 16:38 | EDPHYS ---
Physician Documentation [facility] Name: Rachel Toledo Age: 19 yrs Sex: Female : 2000 Arrival Date: 07/09/2020 Time: 15:02 Bed 20 Private MD: ED Physician James House HPI: 07/09 16:51 This 19 yrs old Female presents to ER via Ambulatory with complaints of kb Headache, Runny Nose. 16:52 The patient or guardian reports cough, that is intermittent, described as mild, with no kb sputum. The patient has not experienced similar symptoms in the past. The patient has not recently seen a physician. 16:52 Onset: The symptoms/episode began/occurred 5 day(s) ago. Severity of symptoms: At their kb worst the symptoms were mild, in the emergency department the symptoms are unchanged. Modifying factors: The symptoms are alleviated by nothing, the symptoms are aggravated by nothing. Associated signs and symptoms: Pertinent positives: rhinorrhea. Pt reports cough, congestion, runny nose and headache for 5 days. . Historical: - Allergies: 15:09 No Known Allergies; ll1 - PMHx: 15:09 Kidney stones; ll1 - PSHx: 15:09 hip sx; ll1 - Immunization history:: Flu vaccine is up to date. - Social history:: Smoking status: Patient denies any tobacco usage or history of. ROS: 16:56 Constitutional: Negative for fever, chills, and weight loss, Cardiovascular: Negative kb for chest pain, palpitations, and edema, Abdomen/GI: Negative for abdominal pain, nausea, vomiting, diarrhea, and constipation, Back: Negative for injury and pain, MS/Extremity: Negative for injury and deformity, Skin: Negative for injury, rash, and discoloration. 16:56 ENT: Positive for rhinorrhea, sinus congestion. 16:56 Respiratory: Positive for cough, Negative for dyspnea on exertion, hemoptysis, orthopnea, pleurisy, shortness of breath, sputum production, wheezing. 16:56 Neuro: Positive for headache. Exam: 16:56 Constitutional: This is a well developed, well nourished patient who is awake, alert, kb and in no acute distress. Head/Face: Normocephalic, atraumatic. Skin: Warm, dry with normal turgor. Normal color with no rashes, no lesions, and no evidence of cellulitis. MS/ Extremity: Pulses equal, no cyanosis. Neurovascular intact. Full, normal range of motion. Neuro: Awake and alert, GCS 15, oriented to person, place, time, and situation. Cranial nerves II-XII grossly intact. Motor strength 5/5 in all extremities. Sensory grossly intact. Cerebellar exam normal. Normal gait. 16:56 Respiratory: the patient does not display signs of respiratory distress, Respirations: normal. Vital Signs: 15:07 BP 150 / 98; Pulse 114; Resp 16; Temp 97.6; Pulse Ox 97% ; Weight 133.36 kg; Height 5 ll1 ft. 3 in. (160.02 cm); Pain 0/10; 16:55 BP 140 / 106; Pulse 118; Resp 22; Pulse Ox 98% ; dm14 15:07 Body Mass Index 52.08 (133.36 kg, 160.02 cm) ll1 MDM: 15:04 Patient medically screened. kb 16:56 Data reviewed: vital signs, nurses notes. Data interpreted: Pulse oximetry: on room air kb is 97 %. Interpretation: normal. Counseling: I had a detailed discussion with the patient and/or guardian regarding: the historical points, exam findings, and any diagnostic results supporting the discharge/admit diagnosis, lab results, the need for outpatient follow up, a family practitioner, to return to the emergency department if symptoms worsen or persist or if there are any questions or concerns that arise at home. 07/09 15:19 Order name: Strep 07/09 15:19 Order name: Flu 07/09 15:19 Order name: COVID-19 : Document "Date of Symptom Onset" if Symptomatic. 07/09 15:19 Order name: Group A Streptococcus Rapid Sc; Complete Time: 15:53 EDMS 07/09 15:50 Order name: Throat Culture EDAR 07/09 16:31 Order name: COVID-19/FLU A+B; Complete Time: 16:32 EDMS Administered Medications: No medications were administered Disposition: 07/09/20 16:37 Discharged to Home. Impression: Coronavirus infection, unspecified. - Condition is Stable. - Discharge Instructions: Viral Respiratory Infection, [id number], COVID-19. - Medication Reconciliation Form, Thank You Letter, Antibiotic Education, Prescription Opioid Use form. - Follow up: Emergency Department; When: As needed; Reason: Worsening of condition. Follow up: Private Physician; When: 2 - 3 days; Reason: Recheck today's complaints, Continuance of care, Re-evaluation by your physician. Addendum: 07/12/2020 06:02 Co-signature as Attending Physician, James House MD I agree with the assessment and k dr plan of care. Signatures: Dispatcher [employer] EDAR Huyen Cohen, INTERNET MARKETING ASSISTANT-C INTERNET MARKETING ASSISTANT-CkJames Manuel MD MD [facility] Kev Hernandez RN RN ll1 Lennie Coto RN RN dm14 Corrections: (The following items were deleted from the chart) 07/09 15:37 15:19 CORONAVIRUS ordered. [facility] 15:39 15:19 Influenza Screen (A ordered. [facility] 17:11 16:37 07/09/2020 16:37 Discharged to Home. Impression: Coronavirus infection, dm14 unspecified. Condition is Stable. Forms are Medication Reconciliation Form, Thank You Letter, Antibiotic Education, Prescription Opioid Use. Follow up: Emergency Department; When: As needed; Reason: Worsening of condition. Follow up: Private Physician; When: 2 - 3 days; Reason: Recheck today's complaints, Continuance of care, Re-evaluation by your physician. kb
[2020-07-09 17:24] VITALS: TEMP 97.6
[2020-07-09 17:26] VITALS: BP 140/106; O2SAT 98
== END 2020-07-09 17:11 | disposition home or self-care (01) ==
LOC: ER 14:59
DX: U07.1 COVID-19 (principal)
CPT/HCPCS: 0240U; 87070; 87081; 99281

== ENCOUNTER 2021-10-22 16:38 | Emergency (ER) | payer SELFPAY ==
--- OUTSIDE RECORDS SUMMARY | 2021-10-22 16:40 | XMS REPORT | Continuity of Care Document ---
:2000 Author Organization [facility] t Address [address] [place] [address] Care Team Providers Name Role Phone PCP, DOES NOT HAVE A Primary Care Physician Unavailable Davis Attending Clinician GABE HILL Attending Clinician Unavailable GABE HILL Admitting Clinician Unavailable Problems Condition Condition Condition Status Onset Resolution Last Treating Co mments Source Name Details Category Date Date Treatment Clinician Date Attention Attention Disease Active Uni vers deficit deficit 8-05 ity of hyperactiv hyperactiv 00:[facility]: [facility] ity ity 00 Medical disorder disorder Branch (ADHD), (ADHD), unspecifie unspecifie d ADHD d ADHD type type BMI (body BMI (body Disease Active Uni vers mass mass 8-05 ity of index), index), 00:00: [place] pediatric, pediatric, 00 Me dical [facility] than or than or equal to equal to 95% for 95% for age age Allergies, Adverse Reactions, Alerts Allergy Allergy Status Severity Reaction(s) Onset Inactive Treating Comm ents Source Name Type Date Date Clinician NO KNOWN Drug Active Univers ALLERGIE Class ity of S [facility] Social History Social Habit Start Date Stop Date Quantity Comments Source Sex Assigned At [facility] Tobacco use and 2018-12-04 2018-12-04 Never used [facility] exposure 00:00:00 00:00:00 Medical Branch Smoking Status Start Date Stop Date Source Never smoker [facility] Medications Ordered Filled Start Stop Current Ordering Indication Dosage Frequency Signature Comments Components Source Medication Medication Date Date Medication? Clinician (SIG) Name Name ibuprofen 2018-05 Yes [id number] 600mg Take 1 U nivers 600 mg 2-11 tablet by ity of tablet 00:00: mouth [place] 00 every 6 Medical (six) Branch hours as needed for Pain (scale 4-6). acetaminoph 2018-05 Yes [id number] 1{tbl} Take 1 Univers en-codeine 2-11 tablet by ity of 300-30 mg 00:00: mouth [place] tablet 00 every 4 Medical (four) Branch hours as needed for Pain (scale 4-6). tamsulosin 2018-05 Yes [id number] .4mg Take 1 U nivers 0.4 mg 24 2-11 capsule by ity of hr capsule 00:00: mouth at [place] as 00 bedtime. Medical Branch methylpheni 2015-05 Yes Univer s date 54 mg 1-15 ity of 24 hr 00:00: [place] tablet 00 Medical Branch norgestimat Yes Take by Un alexandrea e-ethinyl 9-16 mouth. ity of estradiol 00:00: [place] (ORTHO-CYCL 00 Medical EN, 28,) Branch 0.25-35 mg-mcg per tablet Immunizations Ordered Immunization Filled Immunization Date Status Commen ts Source Name Name HEP B, Adult Dosage 2018-12-04 Completed Unive rsity of 00:00:00 [facility] Hep B, Adol or Pedi 2018-08-02 Completed Unive rsity of Dosage 00:00:00 [facility] Hep B, Adol or Pedi 2018-06-11 Completed Unive rsity of Dosage 00:00:00 [facility] MMR 2018-06-11 Completed University of 00:00:00 [facility] Influenza Virus 2018-06-04 Completed Universit y of Vaccine Quad .5 mL IM 00:00:00 [place] as Medical 6+ MO Branch Meningococcal 2014-10-07 Completed University of Polysaccharide 00:00:00 [place] Medi obdulia (groups A, C, Y and Branc h W-135) conjugate vaccine (MCV4P) HEPATITIS A 2011-02-01 Completed University of 00:00:00 [facility] Influenza Virus 2011-02-01 Completed Universit y of Vaccine Quad .5 mL IM 00:00:00 [place] as Medical 6+ MO Branch TDAP 2010-08-01 Completed University of 00:00:00 [facility] Meningococcal 2010-08-01 Completed University of Polysaccharide 00:00:00 [place] Medi obdulia (groups A, C, Y and Branc h W-135) conjugate vaccine (MCV4P) Varicella 2010-08-01 Completed [facility] (varivax)(chicken 00:00:00 [facility] edical pox) [place] DTAP 2003-08-26 Completed [facility] 00:00:00 [facility] MMR 2003-08-26 Completed [facility] 00:00:00 [facility] Polio (IPV/OPV) 2003-08-26 [facility] Procedures This patient has no known procedures. Encounters Start End Encounter Admission Attending Care Care Encounter Source Date/Time Date/Time Type Type Clinicians Facility Department ID 2020-07-09 2020-07-09 Outpatient R [facility] [id number] Univers 15:20:00 15:20:00 [id number] ity [facility] 2020-03-09 2020-03-[address] [facility] [id number] 00:00:00 00:00:00 Noel Gilmore [id number] [facility] Pediatric [id number] Clinic [id number] [facility] 2020-03-09 2020-03-[address] [facility] [id number] [facility] 00:00:00 00:00:00 [id number] [id number] [place] [address] Branch 2019-04-23 2019-04-23 Emergency X Jesusita HILL [facility] ERT [id number] Univers 14:29:51 18[facility]29[facility]00 [facility] This patient has no known results.
[2021-10-22] MEDS ORDERED: ONDANSETRON 4 MG/2 ML VIAL ONE (17:23)
[2021-10-22] MEDS ORDERED: KETOROLAC 30 MG/ML INJ ONE (17:23)
[2021-10-22] MEDS ORDERED: NA CHLORIDE 0.9% 1,000 ML ONE (17:23)
[2021-10-22 17:34] LABS: Urine Blood 1+ (Negative); Urine Glucose Negative (Negative); Urine Protein Negative (Negative); Urine Specific Gravity >=1.030 (1.005-1.030); Urine pH 5.5 (5.0-7.0)
[2021-10-22 17:37] LABS: Absolute Lymphocytes (CBC) 2.7 K/uL (0.7-4.9); Hematocrit 39.3 % (36.0-45.0); MPV 8.1 fL (7.6-11.3); RBC Red Blood Cell Count 4.81 M/uL (3.86-4.86)
[2021-10-22 17:55] LABS: Calcium Oxalate Crystals- Ur FEW (NONE SEEN); Urine Bacteria <20 /HPF (<20); Urine RBC <5 /HPF (NONE SEEN)
[2021-10-22 17:56] LABS: Albumin 3.6 g/dL (3.4-5.0); Bilirubin Total 0.2 mg/dL (0.2-1.0); Potassium 4.1 mmol/L (3.5-5.1); Protein, Total 7.5 g/dL (6.4-8.2)
--- NOTE | 2021-10-22 18:13 | RAD REPORT ---
EXAM DESCRIPTION: CT - Stone Protocol - 10/22/2021 5:56 pm CLINICAL HISTORY: flank pain COMPARISON: Stone Protocol dated 08/19/2018 TECHNIQUE: Axial 3 mm thick images were obtained without oral or IV contrast. The [id number] span s the entirety of the system including uppermost abdomen and lung bases. All CT scans are performed using dose optimization technique as appropriate and may include automated exposure control or mA/KV adjustment according to patient size. FINDINGS: Mild left-sided hydronephrosis secondary to a 2 mm distal ureteral calculus at the UVJ. Th ere is a small amount of fluid and stranding adjacent to the renal pelvis and proximal ureter. Left k idney is slightly edematous relative to the right. No other obstructing or nonobstructing calculi. No right-sided hydronephrosis or nonobstructing calculus. No suspicious renal masses. Isodense masses a nd pyelonephritis are not excluded on a stone protocol CT scan. No significant adrenal finding. Urina ry bladder is fully contracted limiting assessment. No bladder calculus is identified. Uterus and ovaries show no suspicious findings. Imaged portions of the liver, spleen and pancreas show no suspicious findings on non-contrast imaging . Liver attenuation is borderline fatty infiltrated. Gallbladder is contracted. No acute gallbladder or biliary finding. No suspicious bowel findings. No appendicitis. No hernia, mass or bulky lymphadenopathy noted. No free air, free fluid or inflammatory stranding. No significant bony abnormality. IMPRESSION: Mild left-sided hydronephrosis secondary to a 2 mm stone at the UVJ. Isodense masses and pyelonephritis are not excluded on stone protocol technique.
[2021-10-22] MEDS ORDERED: TAMSULOSIN 0.4 MG SR CAP ONE (18:43)
[2021-10-22] MEDS ORDERED: MAGNESIUM SULFATE 1 gm IVPB 1 GM/100 ML BAG IV ONE (18:43)
--- NOTE | 2021-10-22 18:47 | EDPHYS ---
Physician Documentation [facility] Name: Rachel Toledo Age: 21 yrs Sex: Female : 2000 Arrival Date: 10/22/2021 Time: 16:39 Bed 15 Private MD: ED Physician James House HPI: 10/22 18:08 This 21 yrs old Female presents to ER via Ambulatory with complaints of Possible Kidney kb Stone. 18:08 The patient complains of pain in the left flank. The pain does not radiate. Onset: The kb symptoms/episode began/occurred this morning. Modifying factors: The symptoms are alleviated by nothing. the symptoms are aggravated by nothing. Associated signs and symptoms: The patient has no apparent associated signs or symptoms. Severity of pain: At its worst the pain was moderate in the emergency department the pain is unchanged. The patient has not experienced similar symptoms in the past. The patient has not recently seen a physician. Pt reports she has flank pain and difficulty urinating that started this morning. States she has had kidney stones before and this feels the same. Historical: - Allergies: 16:43 No Known Allergies; jb4 - Home Meds: 16:43 control [Active]; jb4 - PMHx: 16:43 Kidney stones; jb4 - PSHx: 16:43 hip surgery; kidney stent; jb4 - Immunization history:: Adult Immunizations up to date. - Social history:: Smoking status: Patient denies any tobacco usage or history of. ROS: 18:08 Constitutional: Negative for fever, chills, and weight loss. kb 18:08 : Positive for flank pain, difficulty urinating. 18:08 All other systems are negative. Exam: 18:08 Constitutional: This is a well developed, well nourished patient who is awake, alert, kb and in no acute distress. Head/Face: Normocephalic, atraumatic. ENT: Moist Mucous membranes Cardiovascular: Regular rate and rhythm with a normal S1 and S2. No gallops, murmurs, or rubs. No pulse deficits. Respiratory: Respirations even and unlabored. No increased work of breathing. Talking in full sentences Abdomen/GI: Soft, non-tender. No distention Skin: Warm, dry with normal turgor. Normal color. MS/ Extremity: Pulses equal, no cyanosis. Neurovascular intact. Full, normal range of motion. Neuro: Awake and alert, GCS 15, oriented to person, place, time, and situation. Moves all extremities. Normal gait. Psych: Awake, alert, with orientation to person, place and time. Behavior, mood, and affect are within normal limits. 18:08 Back: CVA tenderness, that is mild, is noted on the left. Vital Signs: 16:41 BP 135 / 76; Pulse 78; Resp 18; Temp 98.1(TE); Pulse Ox 100% on R/A; Weight 142.43 kg jb4 (R); Height 5 ft. 3 in. (160.02 cm) (R); Pain 8/10; 17:45 BP 145 / 93; Pulse 85; Resp 17; Pulse Ox 100% ; bp 19:00 BP 120 / 78; Pulse 86; Resp 16; Pulse Ox 100% ; bp 16:41 Body Mass Index 55.62 (142.43 kg, 160.02 cm) jb4 MDM: 16:42 Patient medically screened. kb 18:08 Data reviewed: vital signs, nurses notes. Data interpreted: Pulse oximetry: on room air kb is 100 %. Interpretation: normal. 18:46 Counseling: I had a detailed discussion with the patient and/or guardian regarding: the kb historical points, exam findings, and any diagnostic results supporting the discharge/admit diagnosis, lab results, radiology results, the need for outpatient follow up, a urologist, to return to the emergency department if symptoms worsen or persist or if there are any questions or concerns that arise at home. 10/22 16:42 Order name: CBC with Diff; Complete Time: 17:45 kb 10/22 16:42 Order name: CMP; Complete Time: 18:04 kb 10/22 16:42 Order name: Lipase; Complete Time: 18:04 kb 10/22 16:42 Order name: Urine Microscopic Only; Complete Time: 18:04 kb 10/22 17:34 Order name: Urine Dipstick-Ancillary; Complete Time: 17:35 EDMS 10/22 17:36 Order name: Urine --Ancillary (enter results); Complete Time: 18:04 eb 10/22 16:42 Order name: IV Saline Lock; Complete Time: 17:23 kb 10/22 16:42 Order name: Labs collected and sent; Complete Time: 17:23 kb 10/22 16:42 Order name: CT Stone Protocol; Complete Time: 18:18 kb 10/22 16:42 Order name: Urine Dipstick-Ancillary (obtain specimen); Complete Time: 17:37 kb 10/22 16:42 Order name: Urine Test (obtain specimen); Complete Time: 17:37 kb Administered Medications: 17:23 Drug: NS 0.9% 1000 ml Route: IV; Rate: 1 bolus; Site: left hand; bp 19:18 Follow up: IV Status: Completed infusion; IV Intake: 700ml bb 17:23 Drug: Zofran (Ondansetron) 4 mg Route: IVP; Site: left hand; bp 17:37 Follow up: Response: No adverse reaction bp 17:23 Drug: Ketorolac 15 mg Route: IVP; Site: left hand; bp 17:37 Follow up: Response: Pain is decreased bp 18:40 Drug: Magnesium Sulfate 1 grams Route: IVPB; Infused Over: 1 hrs; Site: left hand; bp 19:16 Follow up: IV Status: Completed infusion; IV Intake: 50ml bb 18:40 Drug: Flomax (tamsulosin) 0.4 mg Route: PO; bp 19:16 Follow up: Response: No adverse reaction bb Disposition: 10/23 08:11 Co-signature as Attending Physician, James House MD I agree with the assessment and kdr plan of care. Disposition Summary: 10/22/21 18:47 Discharge Ordered Location: Home kb Condition: Stable kb Diagnosis - Calculus of kidney with calculus of ureter kb Followup: kb - With: Emergency Department - When: As needed - Reason: Worsening of condition Followup: kb - With: Private Physician - When: 2 - 3 days - Reason: Recheck today's complaints, Continuance of care, Re-evaluation by your physician Discharge Instructions: - Discharge Summary Sheet kb - Kidney Stones, [id number] kb Forms: - Medication Reconciliation Form kb - Thank You Letter kb - Antibiotic Education kb - Prescription Opioid Use kb Prescriptions: - Flomax 0.4 mg Oral capsule - take 1 capsule by ORAL route once daily 1/2 hour following the same meal each kb day; 10 capsule; Refills: 0, Product Selection Permitted - Zofran 4 mg Oral Tablet - take 1 tablet by ORAL route every 6 hours As needed; 20 tablet; Refills: 0, kb Product Selection Permitted - Diclofenac Sodium 75 mg Oral tablet,delayed release (DR/EC) - take 1 tablet by ORAL route 2 times per day As needed; 30 tablet; Refills: 0, kb Product Selection Permitted Signatures: Dispatcher [employer] Huyen Mcgregor FNP-C FNP-James Downs MD MD kdr Bryson, James, RN RN jb4 Patrick Oconnor RN RN bp Michelle Andrews RN bb
--- NOTE | 2021-10-22 18:47 | ER ---
Nurse's Notes [facility] Name: Rachel Toledo Age: 21 yrs Sex: Female : 2000 Arrival Date: 10/22/2021 Time: 16:39 Bed 15 Private MD: Diagnosis: Calculus of kidney with calculus of ureter Presentation: 10/22 16:41 Chief complaint: Patient states: Left flank pain and difficulty urinating that started jb4 this morning. I have a history of kidney stones. I took 800mg of Motrin at 1000. Coronavirus screen: At this time, the client does not indicate any symptoms associated with coronavirus-19. Ebola Screen: No symptoms or risks identified at this time. Initial Sepsis Screen: Does the patient meet any 2 criteria? No. Patient's initial sepsis screen is negative. Does the patient have a suspected source of infection? No. Patient's initial sepsis screen is negative. Risk Assessment: Do you want to hurt yourself or someone else? Patient reports no desire to harm self or others. Onset of symptoms was October 22, 2021. Transition of care: patient was not received from another setting of care. 16:41 Method Of Arrival: Ambulatory jb4 16:41 Acuity: ANTONY 3 jb4 Triage Assessment: 16:45 General: Appears in no apparent distress. uncomfortable, obese, Behavior is calm, bp cooperative, appropriate for age. Pain: Complains of pain in left flank. EENT: No deficits noted. Neuro: No deficits noted. Cardiovascular: No deficits noted. Respiratory: No deficits noted. GI: No signs and/or symptoms were reported involving the gastrointestinal system. : Reports pain in left flank(s). Derm: No deficits noted. Musculoskeletal: No deficits noted. Historical: - Allergies: 16:43 No Known Allergies; jb4 - Home Meds: 16:43 control [Active]; jb4 - PMHx: 16:43 Kidney stones; jb4 - PSHx: 16:43 hip surgery; kidney stent; jb4 - Immunization history:: Adult Immunizations up to date. - Social history:: Smoking status: Patient denies any tobacco usage or history of. Screenin:45 Abuse screen: Denies threats or abuse. Denies injuries from another. Nutritional bp screening: No deficits noted. Tuberculosis screening: No symptoms or risk factors identified. Fall Risk None identified. Assessment: 16:45 General: SEE TRIAGE NOTE. bp 17:54 Reassessment: PT TO CT. bp 18:03 Reassessment: PT RETURNED FROM CT. bp 19:00 Reassessment: D/C ON HOLD FOR IV COMPLETION. bp 19:16 Reassessment: Patient is alert, oriented x 3, equal unlabored respirations, skin bb warm/dry/pink. pt verbalized understanding of and agrees to plan of care discharge instructions given pt ambulated with steady gait to exit accompanied by family. Vital Signs: 16:41 BP 135 / 76; Pulse 78; Resp 18; Temp 98.1(TE); Pulse Ox 100% on R/A; Weight 142.43 kg jb4 (R); Height 5 ft. 3 in. (160.02 cm) (R); Pain 8/10; 17:45 BP 145 / 93; Pulse 85; Resp 17; Pulse Ox 100% ; bp 19:00 BP 120 / 78; Pulse 86; Resp 16; Pulse Ox 100% ; bp 16:41 Body Mass Index 55.62 (142.43 kg, 160.02 cm) jb4 ED Course: 16:39 Patient arrived in ED. as 16:39 [facility] Cohen [facility]C [facility] kb 16:39 James House MD is Attending Physician. kb 16:43 Triage completed. jb4 16:44 Arm band placed on right wrist. jb4 16:45 Patient has correct armband on for positive identification. Bed in low position. Call bp light in reach. Side rails up X2. Adult w/ patient. 16:49 Patrick Oconnor, RN is Primary Nurse. bp 17:23 Inserted saline lock: 22 gauge in left hand, using aseptic technique. Blood collected. bp 17:58 CT Stone Protocol In Process Unspecified. EDMS 19:17 No provider procedures requiring assistance completed. IV discontinued, intact, bb bleeding controlled, No redness/swelling at site. Pressure dressing applied. Administered Medications: 17:23 Drug: NS 0.9% 1000 ml Route: IV; Rate: 1 bolus; Site: left hand; bp 19:18 Follow up: IV Status: Completed infusion; IV Intake: 700ml bb 17:23 Drug: Zofran (Ondansetron) 4 mg Route: IVP; Site: left hand; bp 17:37 Follow up: Response: No adverse reaction bp 17:23 Drug: Ketorolac 15 mg Route: IVP; Site: left hand; bp 17:37 Follow up: Response: Pain is decreased bp 18:40 Drug: Magnesium Sulfate 1 grams Route: IVPB; Infused Over: 1 hrs; Site: left hand; bp 19:16 Follow up: IV Status: Completed infusion; IV Intake: 50ml bb 18:40 Drug: Flomax (tamsulosin) 0.4 mg Route: PO; bp 19:16 Follow up: Response: No adverse reaction bb Medication: 16:45 VIS not applicable for this client. bp Intake: 19:16 IV: 50ml; Total: 50ml. bb 19:18 IV: 700ml; Total: 750ml. bb Outcome: 18:47 Discharge ordered by . kb 19:17 Discharged to home ambulatory, with family. bb 19:17 Condition: stable 19:17 Discharge instructions given to patient, Instructed on discharge instructions, follow up and referral plans. medication usage, Demonstrated understanding of instructions, follow-up care, medications, Prescriptions given X 3. 19:18 Patient left the ED. bb Signatures: Dispatcher [employer] EDMS Huyen Cohen, [employer] APPRAISER-Delfina Wallace Brenda RN RN Sunil Montesinos, CRUZ ARROYO Patrick Castellon RN RN bp Corrections: (The following items were deleted from the chart) 16:44 16:41 Chief complaint: Patient states: Left flank pain and difficulty urinating that jb4 started this morning. I have a history of kidney stones. jb4 16:44 16:41 Pulse 78bpm; Resp 18bpm; Pulse Ox 100% RA; Temp 98.1F Temporal; 142.43 kg jb4 Reported; Height 5 ft. 3 in. Reported; BMI: 55.6; Pain 8/10; jb4 17:36 16:45 General: Appears in no apparent distress. uncomfortable, obese, Behavior is calm, bp cooperative, appropriate for age, bp
[2021-10-22 20:00] VITALS: TEMP 98.1; O2SAT 100
[2021-10-22 20:03] VITALS: BP 120/78
== END 2021-10-22 19:18 | disposition home or self-care (01) ==
LOC: ER 16:38
DX: N20.2 Calculus of kidney with calculus of ureter (principal); Z87.442 Personal history of urinary calculi
CPT/HCPCS: 36415; 74176; 76377; 80053; 81003; 81015; 81025; 83690; 85025; 96361; 96365; 96375; 99284; J2405; J3475; J7030